=== PATIENT | female | born 1965 | race Caucasian/White ===

== ENCOUNTER → 2017-09-10 | Outpatient (CLI) | payer OTHER ==
[~2017-09-10] MED LIST: CLX20 PO; ESTR1.252 PO; HYDR50CA2 PO; MELA1TAB49 PO; NAPR1TAB9 PO; SENN-61 PO
== END ==
LOC: C.PAIN 10:06
PROVIDERS: ATTEND Anesthesiology

== ENCOUNTER → 2017-10-02 | Outpatient (CLI) | payer OTHER ==
[~2017-10-02] VITALS: Ht 157.5 cm; Wt 91.6 kg
[~2017-10-02] MED LIST changes: +ACET-1256 PO; +ALBU18002; +ATOR-24 PO; +CLON0.5T3 PO; +FRS/40 PO; +LEVO50TA6 PO; +LISI-729 PO; +MIRT30TA2 PO; +OMEG10007 PO; +PRLSR20 PO
[2017-10-02 13:09] VITALS: BP 97/56; PULSE 109; TEMP 36.8
[2017-10-02 13:49] VITALS: BP 97/56; PULSE 109; TEMP 36.8
--- NOTE | 2017-10-02 14:10 | Pain Clinic Return Visit ---
Pain Clinic Return Visit Date of Service Oct 02, 2017. Reason For Visit Patient here for pre-op evaluation prior spinal cord stimulator change Subjective This is a 52 y/o white female that comes in for a follow up visit regarding lumbar post laminectomy syndrome with chronic neuropathic pain of the lower extremities. Patient did have a spinal cord stimulator implanted on 09/28/13 with 90% relief of her symptoms. She was using the stimulator 17/03. Approximately 5 weeks ago, she was no longer able to charge the [employer] stimulator. She has been experiencing pain in the thoracolumbar region. There is an aching pain in the bilateral lower extremities. She rates her pain 8/[address] circulation representative has evaluated the stimulator and the battery was found to be . Patient denies any constitutional complaints, neurological symptoms, leg weakness, foot drop, or injury. Patient seen with Dr. Magdaleno Home Medications Scheduled Atorvastatin (Lipitor), 1 TAB PO DAILY Fish Oil ([place]-3), 1 CAP PO BID Furosemide (Lasix), 40 MG PO DAILY Levothyroxine Sodium (Levothyroxine Sodium), 1 TAB PO DAILY Lisinopril (Zestril), 5 MG PO DAILY Melatonin (Melatonin), 5 MG PO HS Mirtazapine Soltab (Remeron Soltab), 30 MG PO HS Omeprazole (Prilosec), 40 MG PO DAILY Scheduled PRN Acetaminophen (Tylenol), 2 TAB PO Q6 PRN for prn Albuterol Sulfate (Proair Respiclick), Q4H PRN for prn Clonazepam (Klonopin), 0.5 MG PO TID PRN for PRN Allergies Coded Allergies: Aspirin (Verified Adverse Reaction, Mild, "STOMACH SALDIVAR", 09/14/13) Medications & Allergies Reconciled: Yes Review of Systems Denies complaints related to 10 point organ system review. Objective Date Time Temp Pulse Resp B/P (MAP) Pulse Ox O2 Delivery O2 Flow Rate FiO2 10/02/17 13:49 36.8 109 18 36.8 10/02/17 13:09 36.8 109 18 Height 5 feet, 2.00 inches. Weight 91.600 (Kilograms) 201 (Pounds) Physical Exam GENERAL: Mrs. Stapleton is a 52 y/o white female that appears her stated age. Speech and cognition is intact. Mood and affect is appropriate. HEAD: Normocephalic; atraumatic. EYES: Pupils are round, equal, and reactive to light; EOM intact. ENT: No external ear discharge or lesions. No rhinorrhea or epistaxis. No mucosal lesions. NECK: Full ROM; trachea is midline; no TTP; no cervical lymphadenopathy. CARDIO: Regular rate and rhythm. No murmurs, rubs, or gallops. PULM: Clear to auscultation. No wheezes, rales, or rhonchi. CHEST: Regular chest respiration and excursion. ABDOMEN: Active bowel sounds throughout; non-tender to palpation. EXTREMITIES: 5/5 strength of bilateral lower extremities. No TTP. There are scattered dysesthesias of the legs. BACK: Well healed thoracolumbar incision. Incision of the right flank is well healed. There is no thoracolumbar tenderness. Mild diffuse lumbosacral tenderness. NEURO: CN II-XII grossly intact with no focal deficits noted. Normal gait. SKIN: No lesions, erythema, or rashes noted. Assessment 1. Sacroiliitis. 2. Lumbar post-laminectomy syndrome with chronic intractable radicular pain. 3. History of spinal cord stimulator implantation. 4. Myofascial pain. 5. Depressive disorder. 6. Anxiety disorder. Recommendations Spinal cord stimulator battery has . It is recommended that the battery be replaced. She has filled out the preoperative paperwork. All questions were answered. The procedure was explained to the patient. She would like to proceed with the surgery. Follow-Up for surgery
== END | disposition home or self-care (01) ==
LOC: C.PAIN 12:31
PROVIDERS: ATTEND Anesthesiology
DX: T85.615A Breakdown (mechanical) of other nervous system device, implant or graft, initial encounter (principal); M46.1 Sacroiliitis, not elsewhere classified; M96.1 Postlaminectomy syndrome, not elsewhere classified; M79.1 Myalgia; F32.9 Major depressive disorder, single episode, unspecified; F41.9 Anxiety disorder, unspecified; Z88.6 Allergy status to analgesic agent; Y75.2 Prosthetic and other implants, materials and neurological devices associated with adverse incidents

== ENCOUNTER 2017-10-21 07:46 | Day surgery (SDC) | payer OTHER ==
[2017-10-10 13:48] VITALS: Ht 157.5 cm; Wt 92.0 kg
--- NOTE | 2017-10-10 14:23 | PAT Medication Instructions ---
Service Date Oct 10, 2017. Current Home Medication List Acetaminophen (Tylenol), 2 TAB PO Q6 PRN for prn Albuterol Sulfate (Proair Respiclick), Q4H PRN for prn Atorvastatin (Lipitor), 1 TAB PO HS Clonazepam (Klonopin), 0.5 MG PO TID PRN for PRN Fish Oil ([place]-3), 1 CAP PO BID Furosemide (Lasix), 40 MG PO QAM Levothyroxine Sodium (Levothyroxine Sodium), 1 TAB PO DAILY Lisinopril (Zestril), 5 MG PO QAM Melatonin (Melatonin), 5 MG PO HS Mirtazapine Soltab (Remeron Soltab), 30 MG PO HS Omeprazole (Prilosec), 40 MG PO QAM Medication Instructions For Your Scheduled Surgery - Hold the following medications starting today: Fish Oil ([place]-3), 1 CAP PO BID - Hold the following medications the morning of surgery: Furosemide (Lasix), 40 MG PO QAM Lisinopril (Zestril), 5 MG PO QAM - Take the following medications the morning of surgery with a sip of water: Acetaminophen (Tylenol), 2 TAB PO Q6 PRN for prn (if needed) Albuterol Sulfate (Proair Respiclick), Q4H PRN for prn (if needed) Clonazepam (Klonopin), 0.5 MG PO TID PRN for PRN (if needed) Levothyroxine Sodium (Levothyroxine Sodium), 1 TAB PO DAILY Omeprazole (Prilosec), 40 MG PO QAM - Take the following medications as scheduled the night before surgery: Acetaminophen (Tylenol), 2 TAB PO Q6 PRN for prn (if needed) Albuterol Sulfate (Proair Respiclick), Q4H PRN for prn (if needed) Atorvastatin (Lipitor), 1 TAB PO HS Clonazepam (Klonopin), 0.5 MG PO TID PRN for PRN (if needed) Melatonin (Melatonin), 5 MG PO HS Mirtazapine Soltab (Remeron Soltab), 30 MG PO HS If you have any questions please call us at [phone] or [phone] or [phone]
[2017-10-10 15:18] LABS: BASO % 0.4 %; BASO ABS # 0.04 K/uL (0-0.2); EOS % 1.6 %; EOS ABS # 0.14 K/uL (0-0.5); HEMATOCRIT 41.9 % (37-47); HEMOGLOBIN 14.9 g/dL (12.0-16.0); IG# 0.01 K/uL (0.00-0.02); LYMPH % 35.9 %; LYMPH ABS # 3.21 K/uL (1.2-3.4); MEAN CELL VOLUME 91.1 fL (80-100); MEAN CORPUSCULAR HEMOGLOBIN 32.4 pg (25-34); MEAN CORPUSCULAR HGB CONC 35.6 g/dl (32-36); MEAN PLATELET VOLUME 10.9 fL (7.4-10.4); MONO % 7.5 %; MONO ABS # 0.67 K/uL (0.11-0.59); NEUT % 54.5 %; NEUT ABS # 4.87 K/uL (1.4-6.5); PLATELET COUNT 207 K/uL (130-400); RED CELL DISTRIBUTION WIDTH CV 13.9 % (11.5-14.5); RED CELL DISTRIBUTION WIDTH SD 46.2 fL (36.4-46.3); WHITE BLOOD COUNT 8.94 K/uL (4.8-10.8)
--- NOTE | 2017-10-13 09:34 | History and Physical ---
History & Physical Date of Service Oct 13, 2017. History & Physical Plan of care discussed with Dr. Magdaleno CHIEF COMPLAINT: Intractable lower extremity neuropathic pain HISTORY OF PRESENT ILLNESS: This is a 52 year old white female that is well known to the [facility] with a history of lumbar post- laminectomy syndrome with lower extremity neuropathic pain. Patient received an L4-S1 fusion October 2010. Patient reports a constant sharp, burning, stabbing pain in the bilateral lower extremities. The pain is aggravated with sitting or standing extended amounts of time. She had a [employer] spinal cord stimulator on 09/28/13 which provided 90% relief of her symptoms. Patient denies any constitutional complaints, neurological symptoms, leg weakness, foot drop, or injury. PAST MEDICAL HISTORY: 1. Depressive disorder 2. Anxiety disorder 3. GERD 4. Intractable lumbago and chronic neuropathic pain of the lower extremities 5. Hypercholesterolemia 6. Hypertension 7. Chronic migraine headaches PAST SURGICAL HISTORY: 1. Lumbar laminectomy and decompression and fusion L4-L5, L5-S1 October 2010 2. section 3. Hysterectomy 4. Tubal ligation 5. Umbilical herniorrhaphy 6. Spinal cord stimulator implantation 09/28/13 WORK HISTORY: Patient is disabled. She was previously employed as a [employer] x 8 years. SOCIAL HISTORY: Patient is and has one child. She smokes pack per day 35 years. No alcohol or illicit drug use. ALLERGIES: Aspirin MEDICATIONS: 1. Tylenol 1000 mg every 6 hours as needed 2. Albuterol 2 puffs every 4 hours as needed 3. Atorvastatin 40 mg daily 4. Clonazepam 0.5 mg tablet 3 times daily 5. Lasix 40 mg daily 6. Levothyroxine sodium 50 mcg tablet daily 7. Lisinopril 5 mg daily 8. Melatonin 5 mg at bedtime 9. Remeron 30 mg at bedtime 10. Omeprazole 40 mg daily REVIEW OF SYSTEMS: Denies any constitutional, cardiac, pulmonary, neurological, GI, , extremity, endocrine, neuro, ENT, dermatological, or musculoskeletal complaints other than stated in HPI PHYSICAL EXAMINATION: VITAL SIGNS: Per admission GENERAL: Mrs. Stapleton is a 52 y/o white female that appears her stated age. Speech and cognition is intact. Mood and affect is appropriate. HEAD: Normocephalic; atraumatic. EYES: Pupils are round, equal, and reactive to light; EOM intact. ENT: No external ear discharge or lesions. No rhinorrhea or epistaxis. No mucosal lesions. NECK: Full ROM; trachea is midline; no TTP; no cervical lymphadenopathy. CARDIO: Regular rate and rhythm. No murmurs, rubs, or gallops. PULM: Clear to auscultation. No wheezes, rales, or rhonchi. CHEST: Regular chest respiration and excursion. ABDOMEN: Active bowel sounds throughout; non-tender to palpation. EXTREMITIES: 5/5 strength of bilateral lower extremities. No TTP. There are scattered dysesthesias of the legs. BACK: Well healed thoracolumbar incision. Incision of the right flank is well healed. Battery is non-mobile and non-tender. There is no thoracolumbar tenderness. Mild diffuse lumbosacral tenderness. NEURO: CN II-XII grossly intact with no focal deficits noted. Normal gait. SKIN: No lesions, erythema, or rashes noted. ASSESSMENT: Lumbar post-laminectomy syndrome with chronic intractable neuropathic pain of the bilateral lower extremities TREATMENT: Approximately [address] spinal cord stimulator was interrogated as it was no longer able to charge and was no longer providing pain relief. The battery was found to have . As the patient did receive substantial pain relief with the spinal cord stimulator, it is recommended that the battery be replaced. Risks and benefits were reviewed with the patient. Procedure was explained and she would like to proceed with the procedure.
[~2017-10-21] VITALS: Ht 157.5 cm; Wt 92.0 kg
[~2017-10-21 07:46] MED LIST changes: +CEFAZOLIN 2000MG IV PUSH 15 ML IV SCH; -CLX20 PO; -ESTR1.252 PO; -HYDR50CA2 PO; +LACTATED RINGER'S 1000ML 1,000 ML IV SCH; -NAPR1TAB9 PO; -SENN-61 PO; +VANCOMYCIN 1GM/270ML NSS IV SCH
[2017-10-21 08:28] VITALS: BP 128/60; PULSE 94; TEMP 36.8; O2SAT 97
[2017-10-21 09:08] LABS: CALCIUM 9.5 mg/dl (8.5-10.1); CREATININE 1.13 mg/dl (0.60-1.20); POTASSIUM 3.5 mmol/L (3.5-5.1)
[2017-10-21] MEDS ORDERED: PROPOFOL IV EMULSION 10 MG/ML 20 ML VIAL IV ONE (09:21)
[2017-10-21] MEDS ORDERED: LIDOCAINE HCL 2% 2 ML VIAL (20MG/ML) ONE (09:21)
[2017-10-21] MEDS ORDERED: FENTANYL CITRATE INJ 50 MCG/1 ML 2 ML VIAL ONE (09:22)
[2017-10-21] MEDS ORDERED: MIDAZOLAM HCL 1 MG/ML 2ML VIAL ONE (09:22)
--- NOTE | 2017-10-21 09:30 | History & Physical Bridge Note ---
H&P Re-Evaluation Bridge Note: I have examined the patient, reviewed the History & Physical and in the interval since the performance of the History & Physical I have noted the following changes of clinical significance: No changes noted Mayra Stapleton's history was reviewed, pertinent physical exam was performed, laboratory and pertinent studies were reviewed. No contraindications are noted to proceeding with the proposed procedure. Potential risks including infection , nerve injury, bleeding, hematoma or seroma formation, additional surgical procedures to address these complications, as well as failure to achieve complete relief of preoperative symptoms after the procedure were discussed with the patient. Risks associated with anesthesia required to perform this procedure were reviewed. Alternatives to this procedure were discussed with the patient. Patient's questions were answered. Patient gave informed consent.
--- NOTE | 2017-10-21 09:53 | Discharge Instructions ---
Discharge Instructions Date of Service Oct 21, 2017. Visit Reason for Visit: Malfunctioning Spinal Cord Stimulator, Post Mariano Discharge Discharge Diagnosis / Problem: Lumbar psot lamincetomy syndrome Discharge Goals Goal(s): Decrease discomfort, Improve function Medications Stopped Medications Name(s): none Activity Recommendations Activity Recommendations: no lifting of items 5lbs or more, no repetitive bending, no repetitive twists Lifting Limitations: no more than 5 pounds May Resume Sexual Activity: when tolerated Shower/Bathe: may shower/bathe in 3 days Anesthesia . Post Anesthesia Instructions: If you have had General Anesthesia or IV Sedation: * Do not drive today. * Resume driving when surgeon permits. * Do not make important decisions or sign legal documents today. * Call surgeon for: * Temperature elevations greater than 101 degrees F. * Uncontrollable pain. * Excessive bleeding. * Persistent nausea and vomiting. * Medication intolerance (nausea, vomiting or rash). * For nausea and vomiting use only clear liquids such as: tea, soda, bouillon until nausea subsides, then gradually increase diet as tolerated. * If you have any concerns or questions, call your surgeon's office. If physician is unavailable and it is an emergency, call 911 or go to the nearest emergency room. . Instructions Instructions / Follow-Up . * Change dressings daily. Apply sterile dry gauze. * Call [facility] [phone] or go to the nearest emergency room if he experience high fevers, new back pain, new neurological symptoms such as numbness or weakness in the lower extremity or new bowel bladder incontinence. Also of call if he experience a headache that is positional. * Wear abdominal binder. * No showers for 3 days. * Resume normal activity. No repetitive bending, twisting or reaching overhead for 2 weeks. Do not lift more than 5 pounds for 2 weeks. . Follow-Up Follow-Up: 1 week in office for wound check Diet Recommendations Home Diet: no limitations Procedures Procedures Performed: Replacement of spinal cord stimulator pluse generator Pending Studies Studies pending at discharge: no Medical Emergencies . Who to Call and When: Medical Emergencies: If at any time you feel your situation is an emergency, please call 911 immediately. . Non-Emergent Contact Non-Emergency issues call your: Primary Care Provider Call Non-Emergent contact if: wound has increased drainage, wound has increased redness, wound has increased pain . . "Provider Documentation" section prepared by Orlando Magdaleno. . [place] Drug Monitoring Program Search Results: patient reviewed within database, no issues identified
[2017-10-21] MEDS ORDERED: MEPERIDINE HCL 25 MG/ML CARP IV PRN (10:30)
[2017-10-21] MEDS ORDERED: EpHEDrine SULFATE INJ 50 MG/ML AMP IV PRN (10:30)
[2017-10-21] MEDS ORDERED: LABETALOL HCL IV 5 MG/ML 20ML IV PRN (10:30)
[2017-10-21] MEDS ORDERED: HYDROmorphone INJ 1 MG/ML SYR IV PRN (10:30)
[2017-10-21] MEDS ORDERED: FENTANYL CITRATE INJ 50 MCG/1 ML 2 ML VIAL IV PRN (10:30)
[2017-10-21] MEDS ORDERED: ONDANSETRON INJ 2 MG/ML 2 ML VIAL IV PRN (10:30)
[2017-10-21] MEDS ORDERED: ATROPINE SULFATE 0.1 MG/ML 5ML SYR IV PRN (10:30)
[2017-10-21] MEDS ORDERED: BACITRACIN 50000 UNIT VIAL ONE (11:13)
[2017-10-21] MEDS ORDERED: NEOMYCIN/POLYMYX/BACITR OINT 15 GM TUBE ONE (11:13)
[2017-10-21] MEDS ORDERED: LIDOCAINE 2%/EPINEPHRINE 1:100,000 1.8 ML CARTRIDGE ONE (11:15)
[2017-10-21] MEDS ORDERED: BUPIVACAINE 0.25% 30 ML VIAL ONE (11:15)
[2017-10-21] MEDS ORDERED: EpINEphrine INJ 1MG/ML AMP 1 MG/ML AMP ONE (11:16)
[2017-10-21] MEDS ORDERED: DEXAMETHASONE SOD INJ 4 MG/ML VIAL ONE (11:16)
[2017-10-21] MEDS ORDERED: ONDANSETRON INJ 2 MG/ML 2 ML VIAL ONE (11:16)
[2017-10-21] MEDS ORDERED: GLYCOPYRROLATE INJ 0.2 MG/ML VIAL ONE (11:16)
[2017-10-21] MEDS ORDERED: ROCURONIUM BROMIDE 10 MG/ML 5 ML VIAL IV ONE (11:16)
[2017-10-21] MEDS ORDERED: NEOSTIGMINE METHYLSULFATE 5 MG/5 ML SYR ONE (11:16)
[2017-10-21] MEDS ORDERED: LIDOCAINE HCL 2% LOCAL 50ML VIAL ONE (11:43)
[2017-10-21] MEDS ORDERED: LIDOCAINE/EPINEPHRINE 2% 1:200,000 20 ML SDV ONE (11:46)
[2017-10-21] MEDS ORDERED: LARYING-O-JET KIT (LTA) ONE (11:54)
[2017-10-21] MEDS ORDERED: PHENYLEPHRINE 100MCG/ML 5ML SYR ONE (11:54)
--- NOTE | 2017-10-21 12:30 | [facility] Operative Report ---
Operative Report Operative Date Oct 21, 2017. Pre-Operative Diagnosis Malfunctioning spinal cord battery Post-Operative Diagnosis Same Procedure(s) Performed Replacement of Spinal Cord Stimulator Battery Surgeon Dr Magdaleno Cloth Finisher Surgeon(s) None Estimated Blood Loss 2ml Specimens A. Explanted hardware Anesthesia Type General Complication(s) none Disposition Surgical ICU Description of Procedure REPLACEMENT SPINAL CORD STIMULATOR BATTERY Procedure: Replacement of spinal cord stimulator battery and pulse generator. Preoperative Diagnosis: Depleted spinal cord stimulator battery. Postoperative diagnosis: Same. Surgeon: Dr. Magdaleno Anesthesia: General/endotracheal intubation Estimated blood loss: 2 mL Complications: None Specimen sent to pathology: Explanted spinal cord signal battery/pulse generator Prior to starting, the Patients diagnosis and the procedure were reviewed with the patient in detail. Possible risks and complications including infection, bleeding, damage to surrounding structures and increased pain were discussed. Alternative therapies were also reviewed. Patients questions were answered and they agreed to proceed. Informed consent was obtained. Allergies and medication list was reviewed. The patient was brought to the procedure room. Immediately prior to starting the procedure, a ``time out was conducted with the staff and the patient where the patient was identified, proposed procedure was verified, consent was reviewed and the proper site for the planned procedure was identified. He was given preoperative antibiotics consisting of 1 gram of vancomycin intravenously. General anesthesia was induced and he was placed in prone position for the procedure. On examination, no signs of skin breakdown or infection were noted at the surgical site. The site was cleansed with DuraPrep followed by Betadine. Sterile drapes were applied. Fluoroscopy was utilized to identify the components of the spinal cord stimulator system including the leads. The pocket site in the right hip area was opened up using scalpel and electro cautery and the anchoring sutures were removed. Pulse generator was disconnected and removed. Lead impedances were checked and found to be appropriate. New generator was connected and impedances were checked again and were appropriate. The new generator was placed in the pocket and secured using 0 Proline sutures. Both wounds were irrigated with bacitracin-containing normal saline. Both wounds were closed in similar fashion using continuous 0 suture less Stratafix antibiotic coated suture for deeper layer and running 3-0 V lock suture for subcuticular layer. Prineo to the skin. 4 x 4 gauze and pressure dressing was applied to both sites. Abdominal binder was placed. Patient was allowed to emerge from the anesthesia. Patient was then transported to the recovery room. No complications were encountered. Discharge instructions have been provided to patient and the voiced understanding. Follow-up visit in the office has been arranged. I attest to the content of the Intraoperative Record and any orders documented therein. Any exceptions are noted below.
--- NOTE | 2017-10-21 13:17 | Anesthesiology Progress Note ---
Anesthesia Post Op Note Date & Time Oct 21, 2017 at 13:17 Vital Signs Pain Intensity: 4 Vital Signs Past 12 Hours Date Time Temp Pulse Resp B/P (MAP) Pulse Ox O2 Delivery O2 Flow Rate FiO2 10/21/17 13:05 36.2 75 18 110/64 98 Room Air 10/21/17 12:55 76 20 92/64 98 Oxymask 10 10/21/17 12:45 80 15 104/65 100 Oxymask 10 10/21/17 12:35 36.2 92 12 130/72 94 Oxymask 10 10/21/17 08:28 36.8 94 20 128/60 (82) 97 Room Air Notes Mental Status: alert / awake / arousable, participated in evaluation Pt Amnestic to Procedure: Yes Nausea / Vomiting: adequately controlled Pain: adequately controlled Airway Patency, RR, SpO2: stable & adequate BP & HR: stable & adequate Hydration State: stable & adequate Anesthetic Complications: no major complications apparent
[2017-10-21 13:19] VITALS: BP 112/65; PULSE 83; TEMP 36.6; O2SAT 93
[2017-10-21 13:49] VITALS: BP 117/76; PULSE 80; TEMP 36.6; O2SAT 95
[2017-10-28] MEDS ORDERED: HYDR-5688 PO (13:47)
== END 2017-10-21 13:54 | disposition home or self-care (01) ==
LOC: C.ACU 07:46
PROVIDERS: ATTEND Anesthesiology
DX: Z46.2 Encounter for fitting and adjustment of other devices related to nervous system and special senses (principal); M96.1 Postlaminectomy syndrome, not elsewhere classified; G89.29 Other chronic pain; F32.9 Major depressive disorder, single episode, unspecified; F41.9 Anxiety disorder, unspecified; I10 Essential (primary) hypertension; E66.01 Morbid (severe) obesity due to excess calories; Z79.82 Long term (current) use of aspirin; K21.9 Gastro-esophageal reflux disease without esophagitis; Z90.710 Acquired absence of both cervix and uterus; Z79.899 Other long term (current) drug therapy; Z98.51 Tubal ligation status; Z98.890 Other specified postprocedural states; F17.200 Nicotine dependence, unspecified, uncomplicated

== ENCOUNTER 2021-08-24 07:56 | Inpatient (IN) ==
--- NOTE | 2021-08-03 11:21 | PAT Medication Instructions ---
Medication Instructions Date of Service August 03, 2021 Home Medications albuterol sulfate 90 mcg/actuation breath activated powder inhaler (ProAir RespiClick) 2 inh INHALATION QID PRN atenolol 25 mg tablet 25 mg PO HS atorvastatin 40 mg tablet 40 mg PO HS bupropion HCl 150 mg 24 hr tablet, extended release 150 mg PO HS clonazepam 0.5 mg tablet 0.5 mg PO TID PRN furosemide 20 mg tablet (Lasix) 20 mg PO QAM levothyroxine 50 mcg capsule 50 mcg PO QAM lisinopril 5 mg tablet 5 mg PO QAM melatonin 10 mg capsule 10 mg PO HS metformin 500 mg tablet 500 mg PO QPM mirtazapine 45 mg tablet 45 mg PO HS omeprazole 40 mg capsule,delayed release 40 mg PO QAM sumatriptan succinate 50 mg tablet 50 mg PO UD DO NOT take the morning of surgery furosemide 20 mg tablet (Lasix) 20 mg PO QAM lisinopril 5 mg tablet 5 mg PO QAM Take morning of surgery With a small sip of water, OTHERWISE NOTHING TO EAT OR DRINK AFTER MIDNIGHT: albuterol sulfate 90 mcg/actuation breath activated powder inhaler (ProAir RespiClick) 2 inh INHALATION QID PRN (use if needed; please bring rescue inhaler with you to hospital day of surgery if possible) clonazepam 0.5 mg tablet 0.5 mg PO TID PRN (if needed) levothyroxine 50 mcg capsule 50 mcg PO QAM omeprazole 40 mg capsule,delayed release 40 mg PO QAM sumatriptan succinate 50 mg tablet 50 mg PO UD (if needed) Take evening before surgery albuterol sulfate 90 mcg/actuation breath activated powder inhaler (ProAir RespiClick) 2 inh INHALATION QID PRN (if needed) atenolol 25 mg tablet 25 mg PO HS atorvastatin 40 mg tablet 40 mg PO HS bupropion HCl 150 mg 24 hr tablet, extended release 150 mg PO HS clonazepam 0.5 mg tablet 0.5 mg PO TID PRN (if needed) melatonin 10 mg capsule 10 mg PO HS metformin 500 mg tablet 500 mg PO QPM mirtazapine 45 mg tablet 45 mg PO HS sumatriptan succinate 50 mg tablet 50 mg PO UD (if needed) Other Notes If you have any questions please call us at [phone] or [phone] or [phone] or [phone]
--- NOTE | 2021-08-10 13:47 | Anesthesiology Consultation ---
Date of Service August 10, 2021 Assessment & Plan (1) Encounter for pre-operative examination: - COVID screening: Per assessment on 08/10: Travel screen negative, no known COVID-19 positive contacts or current COVID-19 related symptoms. Patient vac cinated. Surgeon arranging preop COVID testing. Awaiting results. - S/P Replacement of spinal cord stimulator battery (10/21/17): Grade 2 view, MAC#3, ETT#7.0. No issues per anesthesia postop progress note. - Check BSG AM DOS Chart Review Chart Review: Acceptable Risk for Surgery and Patient seen in Pre Admission Testing Teaching & Discussion Pre-Anesthesia Teaching/Discussion Notes: Instructed NPO after midnight before surgery,except medications with 15 cc of water. Medication instructions provided according to the PAT guidelines. History Surgery Operation Date: 08/24/21 12:50 Proposed Procedures p L2-L3 Decompression Fusion, L3 Medicrea Hardware Removal - Gerardo Urias, Height/Weight Height: 5 ft 2 in Weight: 91.4 kg Allergies Allergy/AdvReac Type Severity Reaction Status Date / Time aspirin AdvReac Mild "Stomach Verified 08/10/21 13:31 weber" Medications Home Medications Medication Instructions Recorded Confirmed Last Taken albuterol sulfate 90 mcg/actuation 2 inh INHALATION QID PRN 08/03/21 08/03/21 Unknown breath activated powder inhaler (ProAir RespiClick) atenolol 25 mg tablet 25 mg PO HS 08/03/21 08/03/21 Unknown atorvastatin 40 mg tablet 40 mg PO HS 08/03/21 08/03/21 Unknown bupropion HCl 150 mg 24 hr tablet, 150 mg PO HS 08/03/21 08/03/21 Unknown extended release clonazepam 0.5 mg tablet 0.5 mg PO TID PRN 08/03/21 08/03/21 Unknown furosemide 20 mg tablet (Lasix) 20 mg PO QAM 08/03/21 08/03/21 Unknown levothyroxine 50 mcg capsule 50 mcg PO QAM 08/03/21 08/03/21 Unknown lisinopril 5 mg tablet 5 mg PO QAM 08/03/21 08/03/21 Unknown melatonin 10 mg capsule 10 mg PO HS 08/03/21 08/03/21 Unknown metformin 500 mg tablet 500 mg PO QPM 08/03/21 08/03/21 Unknown mirtazapine 45 mg tablet 45 mg PO HS 08/03/21 08/03/21 Unknown omeprazole 40 mg capsule,delayed 40 mg PO QAM 08/03/21 08/03/21 Unknown release sumatriptan succinate 50 mg tablet 50 mg PO UD 08/03/21 08/03/21 Unknown Past Medical History Medical History Anxiety disorder Depressive disorder Diabetes mellitus, type 2 NIDDM GERD (gastroesophageal reflux disease) Headache, chronic migraine without aura Heart palpitations Taking atenolol Hypercholesterolemia Hypertension Hypothyroidism Lumbar postlaminectomy syndrome Neuropathic pain of both legs Obesity Shortness of breath Denies definitive diagnosis, states reason for inhaler is r/t occasional SOB/ wheezing Spinal cord stimulator status [facility] (pt aware to bring remote AM DOS) Stage 3 chronic kidney disease Exercise / Class Metabolic Activity III < 4 Walking/Shop/Light housework (one FS (no CP, + mild SOB)) Past Surgical History Surgical History H/O tubal ligation H/O: hysterectomy History of lumbar spinal fusion History of surgery Replacement of spinal cord stimulator battery 10/21/2017: Grade 2 view, MAC#3, ETT#7.0. No issues per anesthesia postop progress note. History of umbilical hernia repair Previous section Past Anesthesia History No Hx of Anesthesia Complications and No Family Hx of Anesthesia Complications History of PONV No Hx of PONV and No Hx of Motion Sickness Social History Smoking Status: Current every day smoker tobacco type: cigarettes Smoking cigarettes per day: 1/2 PPD x 41 years Do You Dip or Chew Tobacco: No Hx Alcohol Use: No Hx Substance Use: No substance use type: does not use Review of Systems Denies asthma/COPD, states reason for inhaler is r/t occasional SOB/wheezing Patient denies chest pain, fever, chills, cough, palpitations. Physical Exam Vital Signs VITALS BP 117/72 P 86 TEMP 98.0 SP02 95%RA RESP 18 PHYSICAL Full cervical extension range of motion. Full TMJ range of motion. TMD 3 finger breaths Mallampati Score 2 Dentition: missing sides, upper front left tooth "broken" Lungs: clear throughout to auscultation Cardiac: regular rate and rhythm, no murmurs noted Spine: normal Carotid arteries: negative bruit Extremities: no edema Lab Results Anesthesia Preop Results Results Anesthesia Widget: WBC 7.55 K/uL (4.8-10.8) 08/10/21 Hgb 13.4 g/dL (12.0-16.0) 08/10/21 Hct 40.7 % (37-47) 08/10/21 Plt 218 K/uL (130-400) 08/10/21 Na 143 mmol/L (136-145) 08/10/21 K 3.7 mmol/L (3.5-5.1) 08/10/21 Cl 111 mmol/L (98-107) H 08/10/21 CO2 29 mmol/L (21-32) 08/10/21 BUN 10 mg/dl (7-18) 08/10/21 Creat 1.35 mg/dl (0.6-1.2) H 08/10/21 Glucose Level 139 mg/dl (70-99) H 08/10/21 PT 10.6 Seconds (9.0-12.0) 08/10/21 PTT 27.2 Seconds (21.0-31.0) 08/10/21 INR 1.0 (0.9-1.1) 08/10/21 Urine Color Yellow 08/10/21 Urine Appearance Clear (Clear) 08/10/21 Urine pH 5.5 (4.5-7.5) 08/10/21 Urine Specific [place] 1.015 (1.000-1.030) 08/10/21 Urine Protein Negative (Negative) 08/10/21 Urine Glucose (UA) Negative (Negative) 08/10/21 Urine Ketones Trace (Negative) H 08/10/21 Urine Blood 3+ (Negative) H 08/10/21 Urine Nitrite Negative (Negative) 08/10/21 Urine Bilirubin Negative (Negative) 08/10/21 Urine Urobilinogen Negative (Negative) 08/10/21 Urine Leukocyte Esterase Negative (Negative) 08/10/21 Urine WBC (Auto) 1-5 /hpf (0-5) 08/10/21 Urine RBC (Auto) 10-30 /hpf (0-4) H 08/10/21 Urine Hyaline Casts (Auto) 0 /lpf (0-5) 08/10/21 Urine Epithelial Cells (Auto) 20-30 /lpf (0-5) H 08/10/21 Urine Bacteria (Auto) Negative (Negative) 08/10/21 Blood Type A Positive 08/10/21 Antibody Screen NEGATIVE 08/10/21 Testing Laboratory Results 06/29/21 HGBA1 5.8% Electrocardiogram Date: 08/10/21 NSR at 78bpm. unconfirmed report. Chest X-Ray Date: 12/21/20 Findings: + NAD
[~2021-08-24 07:56] MED LIST changes: -ACET-1256 PO; +ACETAMINOPHEN 500 MG TAB PO SCH; -ALBU18002; -ATOR-24 PO; -CEFAZOLIN 2000MG IV PUSH 15 ML IV SCH; -CLON0.5T3 PO; -FRS/40 PO; +GABAPENTIN 600 MG DOSE PO SCH; -LACTATED RINGER'S 1000ML 1,000 ML IV SCH; -LEVO50TA6 PO; -LISI-729 PO; +LR 15ML/HR IV SCH; -MELA1TAB49 PO; -MIRT30TA2 PO; -OMEG10007 PO; -PRLSR20 PO; -VANCOMYCIN 1GM/270ML NSS IV SCH; +ceFAZolin 2000MG 2,000 MG/15 ML SYR IV SCH
[2021-08-24] MEDS: CeleBREX 200 MG CAP PO SCH ×2 (08:42→08:45)
[2021-08-24] MEDS ORDERED: ePHEDrine sulfate 50 MG/ML AMP IV PRN (09:10)
[2021-08-24] MEDS ORDERED: ONDANSETRON INJ 2 MG/ML 2 ML VIAL IV PRN ×2 (09:10→14:36)
[2021-08-24] MEDS ORDERED: ATROPINE SULFATE 0.1 MG/ML 10ML SYR IV PRN (09:10)
[2021-08-24] MEDS ORDERED: HYDROmorphone INJ 1 MG/ML SYRINGE IV PRN ×2 (09:10→14:36)
[2021-08-24] MEDS ORDERED: LARYING-O-JET KIT (LTA) ONE (09:14)
[2021-08-24] MEDS ORDERED: NEOSTIGMINE METHYLSULFATE 1 MG/ML 10ML VIAL ONE (09:14)
[2021-08-24] MEDS ORDERED: GLYCOPYRROLATE 0.2 MG/ML VIAL ONE (09:14)
[2021-08-24] MEDS ORDERED: SODIUM CHLORIDE 0.9% INJ 10 ML VIAL ONE (09:14)
[2021-08-24] MEDS ORDERED: PROPOFOL IV EMULSION 10 MG/ML 20 ML VIAL IV ONE (09:14)
[2021-08-24] MEDS ORDERED: ONDANSETRON INJ 2 MG/ML 2 ML VIAL ONE ×2 (09:14→10:57)
[2021-08-24] MEDS ORDERED: LIDOCAINE 2% 2 ML VIAL/AMP(20MG/ML) INFIL ONE ×2 (09:14)
[2021-08-24] MEDS ORDERED: ROCURONIUM BROMIDE 10 MG/ML 5 ML VIAL IV ONE (09:14)
[2021-08-24] MEDS ORDERED: HYDROmorphone INJ 2 MG/ML SYR/VIAL ONE (09:14)
[2021-08-24] MEDS ORDERED: DEXAMETHASONE SOD INJ 4 MG/ML VIAL ONE ×2 (09:14→10:57)
[2021-08-24] MEDS ORDERED: MIDAZOLAM HCL 1 MG/ML 2ML VIAL ONE (09:14)
--- NOTE | 2021-08-24 09:54 | History & Physical Bridge Note ---
Date of Service August 24, 2021 History & Physical Bridge Note I have examined the patient, reviewed the History & Physical and in the interval since the performance of the History & Physical I have noted the following changes of clinical significance: no changes noted
--- NOTE | 2021-08-24 09:55 | History & Physical Report ---
Date of Service August 24, 2021 Assessment & Plan (1) Neurogenic claudication due to lumbar spinal stenosis: Plan: L2-L3 decompression fusion, L3 medicrea Hardware removal History of Present Illness Chief Complaint: Back and leg pain Primary Care Provider: NO PCP This is a 56 old female who presents with chronic persistent worsening back and leg pain after failing course of nonoperative care she is here for surgical invention. Allergies Allergy/AdvReac Type Severity Reaction Status Date / Time aspirin AdvReac Mild "Stomach Verified 08/24/21 08:26 weber" Home Medications Medication Instructions Recorded Confirmed Type albuterol sulfate 90 mcg/actuation 2 inh INHALATION QID PRN 08/03/21 08/24/21 History breath activated powder inhaler (ProAir RespiClick) atenolol 25 mg tablet 25 mg PO HS 08/03/21 08/24/21 History atorvastatin 40 mg tablet 40 mg PO HS 08/03/21 08/24/21 History bupropion HCl 150 mg 24 hr tablet, 150 mg PO HS 08/03/21 08/24/21 History extended release clonazepam 0.5 mg tablet 0.5 mg PO TID PRN 08/03/21 08/24/21 History furosemide 20 mg tablet (Lasix) 20 mg PO QAM 08/03/21 08/24/21 History levothyroxine 50 mcg capsule 50 mcg PO QAM 08/03/21 08/24/21 History lisinopril 5 mg tablet 5 mg PO QAM 08/03/21 08/24/21 History melatonin 10 mg capsule 10 mg PO HS 08/03/21 08/24/21 History metformin 500 mg tablet 500 mg PO QPM 08/03/21 08/24/21 History mirtazapine 45 mg tablet 45 mg PO HS 08/03/21 08/24/21 History omeprazole 40 mg capsule,delayed 40 mg PO QAM 08/03/21 08/24/21 History release sumatriptan succinate 50 mg tablet 50 mg PO UD 08/03/21 08/24/21 History Past Med/Surg History Medical History Anxiety disorder Depressive disorder Diabetes mellitus, type 2 NIDDM GERD (gastroesophageal reflux disease) Headache, chronic migraine without aura Heart palpitations Taking atenolol Hypercholesterolemia Hypertension Hypothyroidism Lumbar postlaminectomy syndrome Neuropathic pain of both legs Obesity Shortness of breath Denies definitive diagnosis, states reason for inhaler is r/t occasional SOB/wheezing Spinal cord stimulator status [facility] (pt aware to bring remote AM DOS) Stage 3 chronic kidney disease Surgical History H/O tubal ligation H/O: hysterectomy History of lumbar spinal fusion History of surgery Replacement of spinal cord stimulator battery 10/21/2017: Grade 2 view, MAC#3, ETT#7.0. No issues per anesthesia postop progress note. History of umbilical hernia repair Previous section Social History Smoking Status: Current every day smoker Cigarettes Per Day: 1/2 PPD x 41 years; Second Hand Exposure: No; Do You Dip or Chew Tobacco: No; Tobacco Cessation Education Requested by Patient: No Hx Alcohol Use: No Hx Substance Use: No Preferred Language: Azeri Communication Ability: Effective Gold Assayer Required: No Beliefs That Will Affect Care: None Current Living Situation: Spouse Other Information That Helps Us Care for You: No Feels Safe at Home: Yes Safety Concerns: Feels Safe At This Time Assistive Devices: Glasses Physical Exam Physical Exam: Patient is alert and oriented Heart regular in rhythm Lungs clear Results & Data ([place]) Vital Signs (Past 12 Hours) Vital Signs Temp Pulse Resp BP Pulse Ox 08/24/21 08:31 36.6 C 78 16 135/86 97
[2021-08-24] MEDS ORDERED: BUPIVACAINE 0.5 % 5 MG/1 ML MPF 30ML VIAL ONE (10:27)
[2021-08-24] MEDS ORDERED: EPINEPHrine INJ 1 MG/ML AMP ONE (10:27)
[2021-08-24] MEDS: ceFAZolin 330 MG/ML 1 GM VIAL ONE ×2 (10:31→12:28)
[2021-08-24] MEDS ORDERED: FLOSEAL HEMOSTATIC MATRIX 10ML TOP ONE (12:08)
--- NOTE | 2021-08-24 12:27 | Operative Report ---
Post Operative Report Pre & Post Diagnosis Operation Date: 08/24/21 09:35 Pre-Op Diagnosis: Spinal Stenosis of Lumbar Region with Radiculopathy Post-Op Diagnosis: Spinal Stenosis of Lumbar Region with Radiculopathy I identified the patient and participated in the time-out.: Yes Procedure Operation Date: 08/24/21 09:35 Actual Procedures #1 removal of posterior instrumentation L3-L4 L4-5. #2 exploration of fusion L3-L4 L4-5. #3 lumbar decompression with bilateral medial facetectomies and foraminotomies L1-L2 L2-L3. #4 posterior spinal fusion L2-L3. #5 placement posterior instrumentation L2-L3. #6 interbody fusion L2-L3. #7 placement peek cage 12 x 22 mm at L2-L3. #8 placement locally harvested morselized autograft in the posterior gutters. #9 placement infuse collagen sponge, master graft in the posterior lateral gutters and I factor in the interbody space. Surgeon Gerardo Urias, DO Polysomnograph Tech Blaze Vieira Estimated Blood Loss 100 Findings See Below The patient is 5 foot 2 inches tall weighing over 91 kg with a BMI in excess of 36. Patient's body habitus did contribute to significant technical difficulties required deepest retractors longus instruments in order to perform her procedure. This had at least 50% increased operative time. Specimens None Indications This is a 56-year-old female who presents with marked decline in status. Failing course of nonoperative care she is here for surgical invention. Description of Procedure Patient was met with identified informed consent obtained. Patient was then taken to the operative suite underwent ablation placed in a prone position the [place] table top Brien frame. All bony prominences well-padded eyes inspected to ensure no external proximal spine. This point the lumbar spine is prepped and draped in a sterile fashion. Sharp dissection with the assistance of Bovie cartilage from down to and exposing the lamina and transverse processes of L2 and instrumentation at L3-L4-L5 bilaterally. Then proceeded with the hardware bilaterally. I did elect to retain the pedicle screws at L4-5 bilaterally to avoid excessive blood loss. I was able to successfully remove the L3 pedicle screws. Nevertheless the rods and connectors came out without difficulty. Then performed a complete laminectomy of L2 partial laminectomy L1 including bilateral medial facetectomies and foraminotomies addressing severe spinal stenosis. Pedicle screws were then placed in L2 and L3 bilaterally with assistance of fluoroscopy and appropriately sized sheeba placed. By way of a transforaminal portion right complete discectomy of L3-L4 was performed endplates curetted to subcortical bleeding bone and a 12 x 22 mm peek cage filled with I factor tapped in position. The rods then compressed locked in final position bilaterally. The transverse processes of L to L3 burred to subcortical bleeding bone. Infuse collagen sponge mass graft local graft was placed in posterior gutters. 15 round MARIA TERESA drain inserted. The incision was then closed with 1 Vicryl fascia 2-0 Vicryl subcutaneously and 4 Monocryl for final skin closure. Steri-Strip sterile dressings placed. Patient will continue PACU stable condition. Please note spinal cord monitoring was utilized at the procedure no changes noted. Lilia kamara was present at the entire surgery and while the patient positioning complex portions of the surgery and final skin closure. I attest to the content of the Intraoperative Record and any orders documented therein. Any exceptions are noted below.
--- NOTE | 2021-08-24 12:47 | Fluoroscopy Report ---
FL lumbar spine 2-3V CLINICAL HISTORY: L3 REMOVE HARDWARE/L2-3 DFI COMPARISON STUDY: None. FLUOROSCOPY TIME: 10 seconds. FINDINGS: 2 fluoroscopic spot images of the lumbar spine demonstrate posterior decompression fusion a t L2-L3 with pedicle screws and rods. There are also pedicle screws at L4-L5. There is a partially vi sualized spinal stimulator. The hardware appears intact. IMPRESSION: Fluoroscopic assistance provided for posterior fusion as described above ACT 112: Negative or not required by law. Electronically signed by: Feroz Benítez M.D. 08/24/2021 12:45 PM
[2021-08-24] MEDS: fentaNYL citrate 100 MCG/2 ML VIAL IV PRN ×3 (13:11→13:40)
--- NOTE | 2021-08-24 13:51 | Anesthesiology Progress Note ---
Date of Service August 24, 2021 Anesthesia Post Procedure Vital Signs Vital Signs: Temp Pulse Pulse Resp BP Pulse Ox 08/24/21 13:45 36.4 C L 76 14 119/77 96 08/24/21 13:35 71 14 106/81 96 08/24/21 13:25 71 16 110/79 97 08/24/21 13:15 70 14 113/75 97 08/24/21 13:05 72 12 111/70 97 08/24/21 12:55 73 12 111/75 95 08/24/21 12:46 36.4 C L 79 13 114/74 96 08/24/21 08:31 36.6 C 78 16 135/86 97 Pain Intensity Bilateral Lower Back: Pain Intensity: 3 Transfer of Care Handoff Completed per policy Notes Mental Status: alert / awake / arousable and participated in evaluation Patient Amnestic to Procedure: Yes Nausea / Vomiting: adequately controlled Pain: adequately controlled Airway Patency, RR, SpO2: stable & adequate BP & HR: stable & adequate Hydration State: stable & adequate Anesthetic Complications: no major complications apparent and Pt Satisfied with anesthetic care
[2021-08-24] MEDS ORDERED: DO NOT ADMINISTER FLU VACCINE PRN (14:36)
[2021-08-24] MEDS ORDERED: ALBUTEROL HFA 8 GM INHALER INH PRN (14:36)
[2021-08-24] MEDS ORDERED: DO NOT ADMINISTER PNEUMOCOCCAL VACCINE PRN (14:36)
[2021-08-24] MEDS ORDERED: traMADol HCL 50 MG TABLET PO PRN (14:36)
[2021-08-24] MEDS ORDERED: LORazepam 0.5 MG TAB PO PRN (14:36)
[2021-08-24] MEDS ORDERED: ALUMINUM/MAGNESIUM SUSP 30 ML UDC PO PRN (14:36)
[2021-08-24] MEDS ORDERED: MAGNESIUM HYDROXIDE SUSP 30 ML UDC PO PRN (14:36)
[2021-08-24] MEDS ORDERED: FAMOTIDINE 20 MG TAB PO PRN (14:36)
[2021-08-24] MEDS ORDERED: diphenhydrAMINE Capsule 25 MG CAP PO PRN (14:36)
[2021-08-24] MEDS ORDERED: ONDANSETRON 4 MG OD TAB PO PRN (14:36)
[2021-08-24] MEDS ORDERED: hydrOXYzine HCl 25 MG TAB PO PRN (14:36)
[2021-08-24] MEDS ORDERED: LORazepam 0.5 MG/1 ML VIAL IV PRN (14:36)
[2021-08-24] MEDS ORDERED: PROMETHAZINE HCL 12.5 MG in SODIUM CHLORIDE 0.9% 50 ML IV PRN (14:36)
[2021-08-24] MEDS ORDERED: SOD PHOSPHATE/SOD BIPHOSPHATE ENEMA 132 ML BTL PR PRN (14:36)
[2021-08-24] MEDS ORDERED: bisacodyL 10 MG SUPP PR PRN (14:36)
[2021-08-24] MEDS ORDERED: PHARMACY GLYCEMIC MGMT CONSULT PRN (14:36)
[2021-08-24] MEDS ORDERED: METOCLOPRAMIDE HCL INJ 5 MG/ML 2 ML VIAL IV PRN (14:36)
[2021-08-24] MEDS ORDERED: ACETAMINOPHEN 500 MG TAB PO PRN (14:36)
[2021-08-24] MEDS ORDERED: SUMAtriptan succinate 50 MG TAB PO PRN (14:36)
[2021-08-24] MEDS ORDERED: HYDROmorphone INJ 0.5 MG/0.5 ML SYR IV PRN (14:36)
[2021-08-24] MEDS ORDERED: ACETAMINOPHEN 1,000 MG/100 ML VIAL IV PRN (14:36)
[2021-08-24] MEDS ORDERED: NALOXONE HCL 0.4 MG/1 ML VIAL/CARP IV PRN (14:36)
[2021-08-24] MEDS ORDERED: clonazePAM 0.5 MG TAB PO PRN (14:36)
[2021-08-24] MEDS: SODIUM CHLORIDE 0.9% 1000ML 1,000 ML IV SCH (15:05)
--- NOTE | 2021-08-24 15:28 | Consultation ---
Date of Consultation August 24, 2021 Assessment & Plan (1) Status post lumbar surgery: Post op day# 0 S/P removal instrumentation L3-L5 and decompression and fusion L2-L3 by Dr Urias EB#100ml -pain management per ortho -wound management per ortho -PT/OT as appropriate -DVT prophylaxis per ortho -incentive spirometry -monitor H&H for acute blood loss anemia; pre-op Hgb: 13 (2) Diabetes mellitus, type 2: A1c: 5.8 in 06/2021 Hold metformin Novolog sliding scale. Glycemic pharmacist on board, appreciate management (3) Hypertension: Continue atenolol Hold Lasix and Lisinopril and reassess tomorrow (4) Hypercholesterolemia: Continue atorvastatin (5) Depressive disorder: Continue bupropion (6) GERD (gastroesophageal reflux disease): Continue PPI (7) Hypothyroidism: Continue levothyroxine (8) Tobacco use: Nicotine patch Smoking cessation encouraged DVT Prophylaxis SCDs per ortho Disposition per primary service Follows with Dr Mejias for routine care Pt was seen and care coordinated with Dr Madden. See addendum Thank you for this consultation. We will follow the patient with you during their hospital stay. You can reach a [facility] via pager [email or web address] Supervising Physician Co-Signing Physician Notes Patient was seen and examined. Agree with Dottie ARGUELLES exam, assessment and plan. 56 y/o F with PMH DM II, HTN, HLD, CKD III, GERD, depression, anxiety, tobacco use seen in medical consultation s/p removal instrumentation L3-L5 and decompression and fusion L2-L3 today by Dr Urias. No postop complication. Continue incentive spirometry. PT/OT eval and fall precaution. Continue monitor closely. MD Maryanne History of Present Illness Requesting Physician: Dr Urias Reason for Consultation: post op medical management Attending Physician: Gerardo Urias DO History of Present Illness Patient is 56 y/o F with PMH DM II, HTN, HLD, CKD III, GERD, depression, anxiety, tobacco use seen in medical consultation s/p removal instrumentation L3-L5 and decompression and fusion L2-L3 today by Dr Urias. Post op patient reports doing well and pain controlled. Denies extremity paresthesias, CP, SOB, nausea, vomiting. Denies fever/chills, PRESTON, dizziness, neck pain, palpitations, cough, sore throat,rhinorrhea, abdominal pain, extremity weakness, extremity edema, rashes, urinary symptoms. Allergies Allergy/AdvReac Type Severity Reaction Status Date / Time aspirin AdvReac Mild "Stomach Verified 08/24/21 08:26 weber" Home Medications Medication Instructions Recorded Confirmed Type albuterol sulfate 90 mcg/actuation 2 inh INHALATION QID PRN 08/03/21 08/24/21 History breath activated powder inhaler (ProAir RespiClick) atenolol 25 mg tablet 25 mg PO HS 08/03/21 08/24/21 History atorvastatin 40 mg tablet 40 mg PO HS 08/03/21 08/24/21 History bupropion HCl 150 mg 24 hr tablet, 150 mg PO HS 08/03/21 08/24/21 History extended release clonazepam 0.5 mg tablet 0.5 mg PO TID PRN 08/03/21 08/24/21 History furosemide 20 mg tablet (Lasix) 20 mg PO QAM 08/03/21 08/24/21 History levothyroxine 50 mcg capsule 50 mcg PO QAM 08/03/21 08/24/21 History lisinopril 5 mg tablet 5 mg PO QAM 08/03/21 08/24/21 History melatonin 10 mg capsule 10 mg PO HS 08/03/21 08/24/21 History metformin 500 mg tablet 500 mg PO QPM 08/03/21 08/24/21 History mirtazapine 45 mg tablet 45 mg PO HS 08/03/21 08/24/21 History omeprazole 40 mg capsule,delayed 40 mg PO QAM 08/03/21 08/24/21 History release sumatriptan succinate 50 mg tablet 50 mg PO UD 08/03/21 08/24/21 History oxycodone 5 mg tablet 5 mg PO Q6H PRN #30 tab 08/25/21 Rx tramadol 50 mg tablet 50 mg PO Q6H PRN #30 tab 08/25/21 Rx Patient History Medical History (Updated 08/24/21 @ 15:48 by Dottie Carr PA-C) Anxiety disorder Depressive disorder Diabetes mellitus, type 2 NIDDM GERD (gastroesophageal reflux disease) Headache, chronic migraine without aura Heart palpitations Taking atenolol Hypercholesterolemia Hypertension Hypothyroidism Lumbar postlaminectomy syndrome Neuropathic pain of both legs Obesity Shortness of breath Denies definitive diagnosis, states reason for inhaler is r/t occasional SOB/wheezing Spinal cord stimulator status [facility] [facility] (pt aware to bring remote AM DOS) Stage 3 chronic kidney disease Surgical History (Updated 08/24/21 @ 15:48 by Dottie Carr PA-C) H/O tubal ligation H/O: hysterectomy History of lumbar spinal fusion History of surgery Replacement of spinal cord stimulator battery 10/21/2017: Grade 2 view, MAC#3, ETT#7.0. No issues per anesthesia postop progress note. History of umbilical hernia repair Previous section Family History (Updated 08/24/21 @ 15:44 by Dottie Carr PA-C) Other Cancer Coronary heart disease Diabetes Social History Smoking Status: Current every day smoker Cigarettes Per Day: 1/2 PPD x 41 years; Second Hand Exposure: No; Do You Dip or Chew Tobacco: No; Tobacco Cessation Education Requested by Patient: No Hx Alcohol Use: No Hx Substance Use: No Preferred Language: Slovak Communication Ability: Effective Opera Singer Required: No Beliefs That Will Affect Care: None Current Living Situation: Spouse Other Information That Helps Us Care for You: No Feels Safe at Home: Yes Safety Concerns: Feels Safe At This Time Assistive Devices: Walker Review of Systems Review of Systems: All systems reviewed & are unremarkable except as noted in HPI & below Physical Exam Physical Exam: General: no distress, overweight Head: normocephalic, atraumatic Eyes: conjunctiva non-injected, anicteric ENT: normal inspection external ears, nose, mucous membranes moist Neck: supple, trachea midline Lungs: clear, no respiratory distress, no wheezing/rhonchi/rales CV: RRR, no murmur, no pretibial edema Abd: normal BS, soft, non-tender Ext: no cyanosis, no calf tenderness, pedal pushes and pulls intact bilaterally, sensation to light touch intact, distal pulses intact Neuro: A&O x 3, no focal deficits noted, normal affect Skin: warm, dry Results & Data ([facility]) Vital Signs (Past 12 Hours) Vital Signs Temp Pulse Pulse Resp BP Pulse Ox 08/24/21 15:04 36.3 C L 74 18 124/79 94 08/24/21 13:45 36.4 C L 76 14 119/77 96 08/24/21 13:35 71 14 106/81 96 08/24/21 13:25 71 16 110/79 97 08/24/21 13:15 70 14 113/75 97 08/24/21 13:05 72 12 111/70 97 08/24/21 12:55 73 12 111/75 95 08/24/21 12:46 36.4 C L 79 13 114/74 96 08/24/21 08:31 36.6 C 78 16 135/86 97
[2021-08-24] MEDS: oxyCODONE HCL IR 5 MG TAB (IMMEDIATE RELEASE) PO PRN ×2 (15:56→20:34)
[2021-08-24] MEDS: KETOROLAC TROMETHAMINE 15 MG/ML VIAL IV SCH (17:03)
[2021-08-24] MEDS: NICOTINE 14 MG/24 HR PATCH TD SCH (17:08)
[2021-08-24] MEDS: INSULIN ASPART PER UNIT SC SCH ×2 (17:16→21:43)
[2021-08-24] MEDS: ATENOLOL 25 MG TABLET PO SCH (20:24)
[2021-08-24] MEDS: ceFAZolin 2000MG 2,000 MG/15 ML SYR IV SCH (20:25)
[2021-08-24] MEDS: ATORVASTATIN 40 MG TAB PO SCH (20:27)
[2021-08-24] MEDS: MIRTAZAPINE SOLTAB 15 MG PO SCH (20:27)
[2021-08-24] MEDS: DOCUSATE SODIUM/SENNA 50/8.6MG TAB PO SCH (20:27)
[2021-08-24] MEDS: buPROPion XL 150 MG TABCR PO SCH (20:28)
[2021-08-24] MEDS: MELATONIN 3 MG TAB PO SCH (21:45)
[2021-08-25] MEDS: INSULIN ASPART PER UNIT SC SCH ×6 (00:11→20:51)
[2021-08-25] MEDS: KETOROLAC TROMETHAMINE 15 MG/ML VIAL IV SCH ×3 (00:16→12:37)
[2021-08-25] MEDS: SODIUM CHLORIDE 0.9% 1000ML 1,000 ML IV SCH (00:17)
[2021-08-25] MEDS: ceFAZolin 2000MG 2,000 MG/15 ML SYR IV SCH (04:37)
[2021-08-25] MEDS: LEVOTHYROXINE SODIUM 50 MCG TABLET PO SCH (06:28)
[2021-08-25] MEDS: POLYETHYLENE (MIRALAX) 17 GM PACK PO SCH ×2 (06:28→12:37)
[2021-08-25] MEDS: oxyCODONE HCL IR 5 MG TAB (IMMEDIATE RELEASE) PO PRN ×2 (06:36→16:59)
[2021-08-25 07:16] LABS: Hematocrit (blood only) 34.2 % (37-47); Hemoglobin 11.2 g/dL (12.0-16.0); Immature Granulocytes # (auto) 0.05 K/uL (0.00-0.02); Immature Granulocytes % (auto) 0.4 %; Lymphocytes # (auto) 1.28 K/uL (1.2-3.4); Mean Corpuscular Hemoglobin 30.7 pg (25-34); Mean Corpuscular Hgb Conc 32.7 g/dL (32-36); Mean Corpuscular Volume 93.7 fL (80-100); Mean Platelet Volume 10.9 fL (7.4-10.4); Monocytes # (auto) 0.97 K/uL (0.11-0.59); Monocytes % (auto) 6.8 %; Neutrophils # (auto) 11.97 K/uL (1.4-6.5); Neutrophils % (auto) 83.8 %; Platelet Count 205 K/uL (130-400); RDW Coefficient of Variation 13.4 % (11.5-14.5); RDW Standard Deviation 46.3 fL (36.4-46.3); Red Blood Count 3.65 M/uL (4.2-5.4); White Blood Count 14.27 K/uL (4.8-10.8)
[2021-08-25 08:01] LABS: BUN Creatinine Ratio 12.3 (10-20); Calcium 8.6 mg/dl (8.5-10.1); Est GFR (African American) 49.9 ml/min; Est GFR (Non-African American) 43.1 ml/min; Potassium 4.4 mmol/L (3.5-5.1)
[2021-08-25] MEDS: PANTOprazole 40 MG TAB PO SCH (08:27)
[2021-08-25] MEDS: NICOTINE 14 MG/24 HR PATCH TD SCH (08:27)
[2021-08-25] MEDS ORDERED: lisinopril 5 MG TAB PO SCH (09:00)
[2021-08-25] MEDS ORDERED: FUROSEMIDE 20 MG TAB PO SCH (09:00)
--- NOTE | 2021-08-25 11:09 | Orthopedic Progress Note ---
Date of Service August 25, 2021 Assessment & Plan (1) Neurogenic claudication due to lumbar spinal stenosis: Plan: This time continue physical therapy monitor MARIA TERESA output hopefully discharge home in next few days. Admission and Anticipated Discharge Date Admission Date: August 24, 2021 Subjective Back pain controlled leg pain markedly improved Physical Exam Physical Exam: Patient appears comfortable. She has excellent strength testing. Results & Data ([facility]) Vital Signs (Past 12 Hours) Vital Signs Temp Pulse Resp BP BP Pulse Ox 08/25/21 07:52 36.4 C L 75 16 121/73 93 08/25/21 04:01 36.6 C 98 H 18 106/69 92
--- NOTE | 2021-08-25 13:27 | Hospitalist Progress Note ---
Date of Service August 25, 2021 Assessment & Plan (1) Status post lumbar surgery: Plan: Post op day# 1 S/P removal instrumentation L3-L5 and decompression and fusion L2-L3 by Dr Urias No postop complication Continue pain management per ortho Continue incentive spirometry Continue PT OT We will monitor H&H (2) Diabetes mellitus, type 2: Plan: A1c: 5.8 in 06/2021 Continue to hold metformin Novolog sliding scale. Glycemic pharmacist on board, appreciate management Continue monitor blood sugar (3) Hypertension: Plan: Continue atenolol Hold Lasix and Lisinopril and reassess tomorrow will resume tomorrow (4) Hypercholesterolemia: Plan: Continue atorvastatin (5) Depressive disorder: Plan: Continue bupropion (6) GERD (gastroesophageal reflux disease): Plan: Continue PPI (7) Hypothyroidism: Plan: Continue levothyroxine (8) Tobacco use: Plan: Nicotine patch Counseling on smoking cessation DVT Prophylaxis SCDs per ortho Disposition per primary service Follows with Dr Mejias for routine care Thank you for this consultation. We will follow the patient with you during their hospital stay. You can reach a member of the [facility] Hospitalist Team 17/03 via pager [employer] nnect Admission and Anticipated Discharge Date Admission Date: August 24, 2021 Subjective Patient was seen and examined for postop follow up Sitting in chair with no distress watching TV Patient said pain is improved She said she was able to walk around with therapy this morning Denies any chest pain, palpitation, dizziness, shortness of breath. Review of Systems Review of Systems: All systems reviewed & are unremarkable except as noted in Subjective Physical Exam Physical Exam: General- No acute distress Head- atraumatic Eyes- PERRL, EOMI, ENT- oropharynx clear Neck- supple, no JVD Lungs- clear to auscultation Heart- regular rhythm; no murmur Abdomen- normal bowel sounds, soft, nontender Extremities- no calf tenderness Neuro- alert, oriented x 3; PERRL, EOMI; no facial palsy; no dysarthria Skin- warm & dry Results & Data Results & Data ([facility]) Vital Signs (Past 12 Hours) Vital Signs Temp Pulse Resp BP BP Pulse Ox 08/25/21 11:10 36.7 C 83 16 110/74 96 08/25/21 07:52 36.4 C L 75 16 121/73 93 08/25/21 04:01 36.6 C 98 H 18 106/69 92
--- NOTE | 2021-08-25 14:04 | Pharmacy Report ---
Pharmacy Glycemic Short Note 2 - Date of Service August 25, 2021 - Glycemic Short BSG Results (Last 24 hours): 08/24/21 08/24/21 08/24/21 15:10 16:43 20:45 Glucose POC Glucose 158 H 149 H 163 H 08/25/21 08/25/21 08/25/21 00:03 04:25 06:06 Glucose 135 H POC Glucose 149 H 124 H 08/25/21 08/25/21 08:07 12:17 Glucose POC Glucose 137 H 162 H OUTPATIENT ANTIDIABETIC REGIMEN: * metformin * A1c = 5.8% (06/29/21) ASSESSMENT: * Mayra is a 56 yo T2DM s/p lumbar surgery * She received 6 units of novolog yesterday with decent BSG control * I anticipate improvement today as dexamethasone wears off. Will loosen novolog parameters slightly. * Renal function is a baseline and patient tolerating an oral diet, therefore metformin will be resumed. PLAN FOR INPATIENT GLYCEMIC CONTROL: * Restart metformin 500 mg PO daily with dinner * Basal insulin * none * Bolus insulin * NovoLog per scale ACHS or Q6hrs while NPO * Goal Range: Low 110 mg/dL - High 140 mg/dL * Correction Factor: 25 mg/dL/unit * Nutritional / Prandial insulin per carb ratio of 1 unit per 8 grams CHO consumed PLAN FOR DISCHARGE: * A1c at goal. Continue home regimen on discharge (assuming renal function allows).
[2021-08-25] MEDS ORDERED: metFORMIN HCL 500 MG TAB PO SCH (16:30)
[2021-08-25] MEDS: DOCUSATE SODIUM/SENNA 50/8.6MG TAB PO SCH (20:01)
[2021-08-25] MEDS: ATENOLOL 25 MG TABLET PO SCH (20:06)
[2021-08-25] MEDS: MELATONIN 3 MG TAB PO SCH (20:06)
[2021-08-25] MEDS: ATORVASTATIN 40 MG TAB PO SCH (20:06)
[2021-08-25] MEDS: MIRTAZAPINE SOLTAB 15 MG PO SCH (20:06)
[2021-08-25] MEDS: buPROPion XL 150 MG TABCR PO SCH (20:06)
[2021-08-26] MEDS: LEVOTHYROXINE SODIUM 50 MCG TABLET PO SCH (05:10)
[2021-08-26] MEDS: NICOTINE 14 MG/24 HR PATCH TD SCH (07:33)
[2021-08-26] MEDS: PANTOprazole 40 MG TAB PO SCH (07:33)
[2021-08-26] MEDS: INSULIN ASPART PER UNIT SC SCH (08:38)
[2021-08-26] MEDS: oxyCODONE HCL IR 5 MG TAB (IMMEDIATE RELEASE) PO PRN (08:39)
[2021-08-26 10:09] LABS: Hematocrit (blood only) 35.5 % (37-47); Hemoglobin 11.4 g/dL (12.0-16.0); Mean Corpuscular Hemoglobin 30.8 pg (25-34); Mean Corpuscular Hgb Conc 32.1 g/dL (32-36); Mean Corpuscular Volume 95.9 fL (80-100); Mean Platelet Volume 10.6 fL (7.4-10.4); Platelet Count 177 K/uL (130-400); RDW Coefficient of Variation 13.9 % (11.5-14.5); RDW Standard Deviation 48.6 fL (36.4-46.3); White Blood Count 9.94 K/uL (4.8-10.8)
[2021-08-26 10:35] LABS: BUN Creatinine Ratio 14.1 (10-20); Calcium 9.2 mg/dl (8.5-10.1); Creatinine Clr Calc Pharmacy 55.8 ml/min; Est GFR (African American) 59.9 ml/min; Est GFR (Non-African American) 51.7 ml/min; Potassium 4.1 mmol/L (3.5-5.1)
--- NOTE | 2021-08-26 10:37 | Discharge Summary ---
Date of Service August 26, 2021 Admission HPI Per Admitting Provider This is a 56 old female who presents with chronic persistent worsening back and leg pain after failing course of nonoperative care she is here for surgical invention. Principal Diagnosis Lumbar spinal stenosis with neurogenic claudication Discharge Data Allergies Allergy/AdvReac Type Severity Reaction Status Date / Time aspirin AdvReac Mild "Stomach Verified 08/24/21 08:26 weber" Consultations 08/24/21 14:36 Consult Hospitalist Routine Procedures Performed Operation Date: 08/24/21 09:35 Actual Procedures p L2-L3 Decompression Fusion, Application of Bone Morphogenetic Protein and iFactor Bone Graft, Spinal Cord Monitoring(Not Applicable) - Gerardo Urias DO s L3 Medicrea Hardware Removal(Not Applicable) - Gerardo Urias DO Ordered Studies 08/24/21 09:35 FL lumbar spine 2-3V Routine Hospital Course (1) Neurogenic claudication due to lumbar spinal stenosis: Patient with lumbar decompression fusion trial as well as taken orthopedic floor postoperative postop day #1 she was up and ambulating progressed postop day #2. Pain well controlled. Excellent strength testing. MARIA TERESA drain decreasing appropriately. Subsequent discharge home. Discharge orders instructions from the chart for further review. Total Time Total Time Spent Total Time Spent (In Minutes): 20 minutes Discharge Plan Discharge Items Patient Disposition: Home - Self-Care Reason For Visit: Spinal Stenosis of Lumbar Region with Radiculopath Discharge Diagnosis: Lumbar spinal stenosis with neurogenic claudication Activity: As commented below Non-emergency contact: Primary Care Provider Call non-emergency contact if: you have any medication questions Follow-up/Referrals: Richard Mejias MD [Primary Care Provider] - Diet: Regular Addtl Attending Provider Instructions: ACTIVITY RECOMMENDATIONS: SELF CARE INSTRUCTIONS AFTER THORACIC/LUMBAR FUSIONS 1. You may walk to your tolerance. It is good exercise for your legs and back. Expect some back and intermittent leg aches and pains. 2. You may perform "counter-top" level activities (make a sandwich, galo with a project, etc.). 3. No bending or lifting of more than 10 pounds or back twisting of any nature (roll like a log when turning in bed). 4. You may ride in a car for 20-30 minutes at a time. No driving until after your first visit with your doctor. 5. Frequent changes of position and restricting sitting to 30 minutes at a time will help limit the amount of back spasms and stiffness you may experience. 6. You may discontinue the use of ambulatory aids (cane, crutches, etc.) once y our strength and confidence allow. 7. You may adhesive bandage making operator the shower and let water strike your incision when you arrive home at least once daily. Do not take a tub bath, sit in a hot tub or go into a swimming pool until after your first recheck in the office. SPECIAL CARE INSTRUCTIONS: VERY IMPORTANT TO READ AND REVIEW A. Your surgical incision has been closed with a cosmetic suture under the skin that will dissolve in about 6 weeks. In 14 days, you can use a pair of clean scissors and cut the suture that is left outside of the skin at the ends of your incision. 1. The small skin tapes can be removed 7 days after surgery if they have not fallen off by that point. 2. You may keep the wound open to air as much as possible to promote healing after post-op day number 5 unless told otherwise by your doctor. 3. If you think the wound looks like it is becoming infected (redness or worsening drainage) and/or you are experiencing fever, chill or worsening back pain and muscle spasms, contact the office so that we may evaluate you as soon as possible. B. Complications are uncommon, but please contact us if you have any signs or symptoms of: 1. wound infection (fever higher than 102.5 degrees F, redness, separation of wound, drainage, or increasing pain from the incision) 2. blood clots in legs (pain, swelling, redness and warmth in legs) 3. urinary tract infection (fever higher than 102.5 degrees F, burning upon urination or increased frequency of urination) 4. nerve problems (inability to walk on your toes or heels, numbness, loss of bowel or bladder control) 5. any other symptoms that concern you C. Please call the office at if you have any concerns or questions about your operation or recovery. D. No smoking! Smoking drastically decreases the chance of a solid fusion. E. Do not take any anti-inflammatory medications (Indocin, Advil, Motrin, Aspirin, Naprosyn, etc.) as these may inhibit the chance of a solid fusion. Tylenol is okay to take for pain. MANAGING PAIN AFTER SPINAL SURGERY 1. Narcotic medication is intended for short-term use and will be provided for surgical pain. Surgical pain usually lasts for a period of 4-6 weeks. Narcotic medication includes Percocet, Vicodin, Darvocet, Tylenol #3 or Lortab. 2. Longer-term pain is more appropriately treated with non-narcotic medication such as Tylenol ES. 3. Muscle spasm is not appropriately treated with narcotics. Muscle relaxers such as Soma, Flexeril or Skelaxin can be used along with Tylenol ES. 4. Remember that we all live with some "aches and pains". This is not unusual or uncommon after an injury or as we get older. a. Back pain is expected and may include muscle spasms for 4 to 6 weeks after surgery. The pain should gradually improve. If the pain worsens for no apparent reason, please contact the office. b. Intermittent leg pain may also be experienced and should not be concerned about unless it worsens for no apparent reason. If so, please contact the office. 5. We will provide appropriate medication within the normal guidelines of their prescribed use. We will also be very cautious and aware of potential abuse and extended duration of patients' medication needs. a. Pain medications are for your comfort and to assist with sleep and rest so that the tissue can heal. They are not provided in order to return to normal activity and should not be used through the day. To do so or worsening pain at night can result from ongoing tissue damage and development of tolerance to the prescribed medicine. 6. Please allow 2-3 days to process refills. Prescriptions will not be mailed but must be picked up at the office. FOLLOW UP VISIT: Keep your scheduled follow-up appointment. Any questions, please call the office at . Pending Studies at Discharge: No Stand-Alone Forms: [employer] (formerly [employer]), Smoking Cessation Medications and DC Order Prescriptions: New oxycodone 5 mg tablet 5 mg PO Q6H PRN (Reason: pain, severe) Qty: 30 RF: 0 tramadol 50 mg tablet 50 mg PO Q6H PRN (Reason: pain, moderate) Qty: 30 RF: 0 Continued atorvastatin 40 mg Tablet 40 mg PO HS RF: 0 metformin 500 mg Tablet 500 mg PO QPM RF: 0 clonazepam 0.5 mg Tablet 0.5 mg PO TID PRN (Reason: Anxiety) RF: 0 atenolol 25 mg Tablet 25 mg PO HS RF: 0 sumatriptan succinate 50 mg Tablet 50 mg PO UD RF: 0 omeprazole 40 mg Capsule,Delayed Release(Dr/Ec) 40 mg PO QAM RF: 0 mirtazapine 45 mg Tablet 45 mg PO HS RF: 0 lisinopril 5 mg Tablet 5 mg PO QAM RF: 0 furosemide [Lasix] 20 mg Tablet 20 mg PO QAM RF: 0 bupropion HCl 150 mg Tablet Extended Release 24 Hr 150 mg PO HS RF: 0 levothyroxine 50 mcg Capsule 50 mcg PO QAM RF: 0 melatonin 10 mg Capsule 10 mg PO HS RF: 0 ProAir RespiClick 90 mcg/actuation Aerosol Powdr Breath Activated 2 inh INHALATION QID PRN (Reason: sob) RF: 0 Discharge Orders: Discharge Order (Routine); Ordered 08/26/21 Ordered By: Gerardo Urias Admission Data Admit Date/Time: 08/24/21 12:31 Attending Provider: Gerardo Urias Admit Provider: Gerardo Urias Primary Care Provider: Richard Mejias Other Providers: Selene Nieves ; Eusebio Madden
--- NOTE | 2021-08-26 10:39 | Hospitalist Progress Note ---
Date of Service August 26, 2021 Assessment & Plan (1) Status post lumbar surgery: Plan: Post op day# 2 S/P removal instrumentation L3-L5 and decompression and fusion L2-L3 by Dr Urias No postop complication Continue pain management per ortho Continue incentive spirometry Continue PT/ OT Hgb stable Clinically stable (2) Diabetes mellitus, type 2: Plan: A1c: 5.8 in 06/2021 Continue to hold metformin Novolog sliding scale. Glycemic pharmacist on board, appreciate management Continue monitor blood sugar Will resume metformin on discharge (3) Hypertension: Plan: Continue atenolol Hold Lasix and Lisinopril and reassess tomorrow Resume Lasix and Lisinopril on discharge (4) Hypercholesterolemia: Plan: Continue atorvastatin (5) Depressive disorder: Plan: Continue bupropion (6) GERD (gastroesophageal reflux disease): Plan: Continue PPI (7) Hypothyroidism: Plan: Continue levothyroxine (8) Tobacco use: Plan: Nicotine patch Counseling on smoking cessation DVT Prophylaxis SCDs per ortho Disposition per primary service Follows with Dr Mejias for routine care Thank you for this consultation. We will follow the patient with you during their hospital stay. You can reach a [facility] via pager [employer] Admission and Anticipated Discharge Date Admission Date: August 24, 2021 Subjective Patient was seen and examined for postop follow up Sitting in chair with no distress watching TV Pt said that she feels much better today Denies any chest pain, palpitation, dizziness, shortness of breath. Review of Systems Review of Systems: All systems reviewed & are unremarkable except as noted in Subjective Physical Exam Physical Exam: General- No acute distress Head- atraumatic Eyes- PERRL, EOMI, ENT- oropharynx clear Neck- supple, no JVD Lungs- clear to auscultation Heart- regular rhythm; no murmur Abdomen- normal bowel sounds, soft, nontender Extremities- no calf tenderness Neuro- alert, oriented x 3; PERRL, EOMI; no facial palsy; no dysarthria Skin- warm & dry Results & Data Results & Data ([facility]) Vital Signs (Past 12 Hours) Vital Signs Temp Pulse Resp BP Pulse Ox 08/26/21 08:36 36.7 C 89 16 129/84 97
== END 2021-08-26 12:11 | disposition home or self-care (01) | DRG 455 ==
LOC: ASU 07:56 → 3E 12:31
DX: Z98.1 Arthrodesis status; Z20.822 Contact with and (suspected) exposure to COVID-19; R00.2 Palpitations; E78.00 Pure hypercholesterolemia, unspecified; Z91.81 History of falling; Z79.84 Long term (current) use of oral hypoglycemic drugs; M48.062 Spinal stenosis, lumbar region with neurogenic claudication; Z88.6 Allergy status to analgesic agent; M54.16 Radiculopathy, lumbar region; Z68.36 Body mass index [BMI] 36.0-36.9, adult; F41.9 Anxiety disorder, unspecified; K21.9 Gastro-esophageal reflux disease without esophagitis; N18.30 Chronic kidney disease, stage 3 unspecified; Z01.812 Encounter for preprocedural laboratory examination; Z96.82 Presence of neurostimulator; Z79.890 Hormone replacement therapy; Z79.899 Other long term (current) drug therapy; E66.9 Obesity, unspecified; E03.9 Hypothyroidism, unspecified; I12.9 Hypertensive chronic kidney disease with stage 1 through stage 4 chronic kidney disease, or unspecified chronic kidney disease; F32.A Depression, unspecified; F17.210 Nicotine dependence, cigarettes, uncomplicated; E11.22 Type 2 diabetes mellitus with diabetic chronic kidney disease